=== PATIENT | male | born 1960 | race Caucasian/White ===

== ENCOUNTER 2021-10-31 11:14 | Outpatient (REF) | payer OTHER, SELFPAY ==
[2021-10-31 13:24] LABS: Anion Gap 10 (12-20); Blood Urea Nitrogen 16 mg/dL (9-16); Calcium 9.4 mg/dL (8.4-10.2); Carbon Dioxide 30 mmol/L (22-29); Chloride 109 mmol/L (96-108); Estimated Glomerular Filt Rate > 60; Glucose Fasting 112 mg/dL (60-99); Potassium 4.4 mmol/L (3.3-5.1); Sodium 145 mmol/L (135-145)
[2021-10-31 13:39] LABS: Syphilis Screen Nonreactive (Nonreactive)
[2021-10-31 13:56] LABS: Folate 15.9 ng/mL (> or = 4.0); Vitamin B12 467 pg/mL (200-900)
[2021-11-02 06:36] LABS: Lyme Blot 3.22 index
[2021-11-02 09:39] LABS: Lyme Abs Screen POSITIVE
[2021-11-02 15:31] LABS: 18 KD (IgG) Band REACTIVE; 23 KD (IgG) Band REACTIVE; 23 KD (IgM) Band NON-REACTIVE; 28 KD (IgG) Band NON-REACTIVE; 30 KD (IgG) Band NON-REACTIVE; 39 KD (IgM) Band NON-REACTIVE; 41 KD (IgM) Band NON-REACTIVE; 45 KD (IgG) Band NON-REACTIVE; 58 KD (IgG) Band REACTIVE; 66 KD (IgG) Band NON-REACTIVE; 93 KD (IgG) Band REACTIVE; Lyme IgG Blot Interp POSITIVE (NEGATIVE); Lyme IgM Blot Interp NEGATIVE (NEGATIVE)
[2021-11-02 20:46] LABS: IgA 94 mg/dL (70-320); IgG 956 mg/dL (600-1540); IgM 75 mg/dL (50-300)
[2021-11-02 23:02] LABS: ANA Titer 2 1:40 titer; Anti Nuclear Antibody Screen POSITIVE (NEGATIVE)
== END 2021-10-31 11:15 | disposition home or self-care (01) ==
LOC: HO.LAB 11:14
PROVIDERS: PCP Internal Medicine; Visit Provider Psychiatry & Neurology Neurology
DX: G62.9 Polyneuropathy, unspecified (principal)
CPT/HCPCS: 36415; 80048; 82607; 82746; 82784; 86038; 86039; 86334; 86617; 86618; 86780

== ENCOUNTER 2022-01-11 11:17 | Outpatient (REF) | payer OTHER, SELFPAY ==
[2022-01-13 06:11] LABS: Lyme Blot 3.13 index
[2022-01-13 09:33] LABS: Lyme Abs Screen POSITIVE
[2022-01-13 15:56] LABS: 18 KD (IgG) Band REACTIVE; 23 KD (IgG) Band REACTIVE; 23 KD (IgM) Band NON-REACTIVE; 28 KD (IgG) Band NON-REACTIVE; 30 KD (IgG) Band NON-REACTIVE; 39 KD (IgM) Band NON-REACTIVE; 39KD (IgG) Band REACTIVE; 41 KD (IgM) Band NON-REACTIVE; 41KD (IgG) Band REACTIVE; 45 KD (IgG) Band NON-REACTIVE; 58 KD (IgG) Band REACTIVE; 66 KD (IgG) Band NON-REACTIVE; 93 KD (IgG) Band REACTIVE; Lyme IgG Blot Interp POSITIVE (NEGATIVE); Lyme IgM Blot Interp NEGATIVE (NEGATIVE)
== END 2022-01-11 11:18 | disposition home or self-care (01) ==
LOC: HO.LAB 11:17
PROVIDERS: Psychiatry & Neurology Neurology; Visit Provider Psychiatry & Neurology Neurology
DX: A69.20 Lyme disease, unspecified (principal)
CPT/HCPCS: 36415; 86617; 86618